=== PATIENT | female | born 1970 | race African-American/Black ===

== ENCOUNTER → 2017-02-17 | Outpatient (CLI) | payer BC ==
--- NOTE | 2017-02-17 17:07 | KCIC ---
Examination: MRI of the left knee without contrast HISTORY: History of chronic knee pain, anteromedial in the knee COMPARISON: 10/16/2015 TECHNIQUE: Multiplanar, multisequence MR imaging of the left knee was performed without contrast FINDINGS: Examination limited due to mild motion artifact. The anterior cruciate ligament, posterior cruciate ligament are intact. The medial meniscus demonstrates mild free edge fraying in the body of the medial meniscus best visualized on series 8 image #8 likely free edge radial tear. There is undersurface blunting of the body of the lateral meniscus peripherally, best visualized on series 6 image #4 probably prior surgical change or less likely a degenerative retear. The extensor mechanism is intact. The medial collateral ligament is intact. The lateral collateral ligamentous complex including the fibular collateral ligament, biceps femoris tendon, patellar tendon appear intact. Small knee joint effusion is identified. The medial retinaculum, lateral retinaculum are intact. Tiny leaking popliteal cyst identified. Minimal fraying of cartilage identified in the medial compartment and lateral compartment. IMPRESSION: 1. Minimal free edge fraying of the body of the medial meniscus likely a small free edge radial tear. 2. Small leaking popliteal cyst. Small knee joint effusion. 3. Undersurface blunting of the body of the lateral meniscus peripherally, best visualized on series 6 image #4 probably prior surgical change or less likely a retear. Correlate clinically. 4. Grade I chondromalacia medial, lateral compartments. Mild tricompartmental degenerative changes. Electronically signed by: David Hurd MD (02/17/2017 5:03 PM) [id number]
== END | disposition home or self-care (01) ==
LOC: KCIC MRI 15:33
PROVIDERS: ATTEND Physician Assistant Surgical
DX: M94.262 Chondromalacia, left knee (principal); M25.462 Effusion, left knee; M71.22 Synovial cyst of popliteal space [Baker], left knee
CPT/HCPCS: 73721